=== PATIENT | male | born 1935 | race Caucasian/White ===

== ENCOUNTER 2021-01-18 10:43 | Outpatient (RCR) | payer MEDICARE, SELFPAY ==
[2021-01-18] MEDS: COVID-19 VACC, MRNA(PFIZER)/PF 30 MCG/0.3 ML SYRINGE IM (13:45)
[2021-02-08] MEDS: COVID-19 VACC, MRNA(PFIZER)/PF 30 MCG/0.3 ML SYRINGE IM (13:32)
== END 2021-04-17 23:59 ==
LOC: IMMUN 10:43
PROVIDERS: PCP Family Medicine; Visit Provider Family Medicine
DX: Z23 Encounter for immunization (principal)
CPT/HCPCS: 0001A; 0002A; 91300